=== PATIENT | male | born 1990 | race African-American/Black ===

== ENCOUNTER 2019-08-20 02:48 | Emergency (ER) | payer SELFPAY ==
[2019-08-20 03:57] LABS: ABSOLUTE BASOPHILS # (AUTO) 0.1 10^3/uL (0.0-0.2); ABSOLUTE LYMPHOCYTES (AUTO) 2.3 10^3/uL (0.5-4.7); ABSOLUTE MONOCYTES (AUTO) 1.1 10^3/uL (0.1-1.4); BASOPHILS % (AUTO) 0.6 % (0-2); EOSINOPHILS % (AUTO) 0.3 % (0-6); HEMATOCRIT 47.9 % (37.9-51.0); HEMOGLOBIN 16.1 g/dL (13.5-17.0); LYMPHOCYTES % (AUTO) 18.6 % (13-45); MEAN CORPUSCULAR HEMOGLOBIN 29.7 pg (27.0-33.4); MEAN CORPUSCULAR HGB CONC 33.6 g/dL (32.0-36.0); MEAN CORPUSCULAR VOLUME 89 fl (80-97); MONOCYTES % (AUTO) 8.7 % (3-13); PLATELET COUNT 332 10^3/uL (150-450); RED BLOOD COUNT 5.41 10^6/uL (4.35-5.55); RED CELL DISTRIBUTION WIDTH 15.2 % (11.5-14.0); SEGMENTED NEUTROPHILS % (AUTO) 71.8 % (42-78); TOTAL CELLS COUNTED % (AUTO) 100 %; WHITE BLOOD COUNT 12.5 10^3/uL (4.0-10.5)
[2019-08-20 04:17] LABS: ANION GAP 16 (5-19); BLOOD UREA NITROGEN 15 mg/dL (7-20); CALCIUM 10.3 mg/dL (8.4-10.2); CARBON DIOXIDE 22 mmol/L (22-30); CHLORIDE 106 mmol/L (98-107); GLUCOSE 97 mg/dL (75-110); POTASSIUM 4.9 mmol/L (3.6-5.0)
[2019-08-20] MEDS ORDERED: RINGERS SOLUTION,LACTATED 1,000 ML IV ONE (04:57)
--- NOTE | 2019-08-20 05:02 | ER Document Report ---
ED Substance Abuse / Acc. OD - General TRAVEL OUTSIDE OF THE [place] IN LAST 30 DAYS: No <PARK ZARAGOZA - Last Filed: 08/20/19 08:09> <TIFFANIE MAN - Last Filed: 08/20/19 20:37> - General Chief Complaint: Drug Abuse Stated Complaint: NAUSEA Time Seen by Provider: 08/20/19 04:43 Notes: Patient is a 28-year-old male that comes emergency department for chief complaint of needing medical clearance. Reportedly patient overdosed on heroin last night, was seen at [facility], discharged and referred to [facility] for rehab, patient went to that place, however he vomited at the treatment center and his heart rate was elevated so they sent him over here reportedly "for IV fluids and something for nausea". He is here with his parents who are giving most of the history, patient is confused about the specific details of what happened in the past 24 hours. However patient is alert and responsive otherwise. Patient states he smokes cigarettes, he drank alcohol yesterday including "a couple of shots", he denies marijuana. He states typically he will inject cocaine or heroin but he never does so on a daily basis and he has never had withdrawal symptoms in the past. States he just feels "dried out". He denies any other complaints. (PARK ZARAGOZA) - Related Data Allergies/Adverse Reactions: No Known Allergies Allergy (Verified 08/20/19 07:47) Past Medical History - General Information source: Patient, Parent - Social History Smoking Status: Current Every Day Smoker Drug Abuse: Cocaine, Heroin Lives with: Family Family History: Reviewed & Not Pertinent Patient has suicidal ideation: No Patient has homicidal ideation: No - Immunizations Hx Diphtheria, Pertussis, Tetanus Vaccination: Yes <PARK ZARAGOZA - Last Filed: 08/20/19 08:09> Review of Systems - Review of Systems Constitutional: See HPI EENT: No symptoms reported Cardiovascular: See HPI Respiratory: No symptoms reported Gastrointestinal: See HPI Genitourinary: No symptoms reported Male Genitourinary: No symptoms reported Musculoskeletal: No symptoms reported Skin: No symptoms reported Hematologic/Lymphatic: No symptoms reported Neurological/Psychological: No symptoms reported <PARK ZARAGOZA - Last Filed: 08/20/19 08:09> Physical Exam <PARK ZARAGOZA - Last Filed: 08/20/19 08:09> - Vital signs Vitals: Temp Pulse Resp BP Pulse Ox 97.5 F 109 H 20 130/67 H 96 08/20/19 02:53 08/20/19 02:53 08/20/19 02:53 08/20/19 02:53 08/20/19 02:53 - Notes Notes: GENERAL: Alert, interacts well. No acute distress. HEAD: Normocephalic, atraumatic. EYES: Pupils equal, round, and reactive to light. Extraocular movements intact. ENT: Oral mucosa moist, tongue midline. Oropharynx unremarkable. Airway patent. LUNGS: Clear to auscultation bilaterally, no wheezes, rales, or rhonchi. No respiratory distress. HEART: Borderline tachycardia, normal rhythm, no murmur ABDOMEN: Soft, non-tender. Non-distended. EXTREMITIES: Moves all 4 extremities spontaneously. No edema, normal radial and dorsalis pedis pulses bilaterally. No cyanosis. BACK: no cervical, thoracic, lumbar midline tenderness. No saddle anesthesia, normal distal neurovascular exam. Moves all extremities in full range of motion. NEUROLOGICAL: Alert and oriented x3. Normal speech. Cranial nerves II through XII grossly intact. PSYCH: Slightly flat affect and somewhat distracted and restless but still is easily directable and cooperative. SKIN: Warm, dry, normal turgor. No rashes or lesions noted. (PARK ZARAGOZA) Course - Laboratory Result Diagrams: 08/20/19 03:45 08/20/19 03:45 <PARK ZARAGOZA - Last Filed: 08/20/19 08:09> - Laboratory Result Diagrams: 08/20/19 03:45 08/20/19 03:45 <TIFFANIE MAN - Last Filed: 08/20/19 20:37> - Re-evaluation Re-evalutation: Patient is mildly tachycardic on exam but he is very well-appearing, he was already drinking fluids when I was in the room. He is conversational and cooperative although he is confused about today's events. He is oriented otherwise. Patient does have with him paperwork from his evaluation at [facility], this indicates that patient did have an accidental overdose and was given Narcan, he had a leukocytosis at 23.9 and a mild transaminitis at that time, his creatinine was 1.49. Plan is improved by comparison, leukocytosis is only 12, transaminitis has resolved, creatinine 1.69 (slightly worse, reportedly has not had anything PO yet and vomited earlier). Patient was provided with IV fluids. Patient not complaining of nausea, tolerating p.o. without any difficulty at this time, no current complaints. 08/20/19 Patient reportedly vomited right before he was given Zofran. He currently has no complaints on reevaluation though. He will be given Carafate, famotidine, Phenergan for suspected gastritis component. His abdomen is soft and benign. If he tolerates p.o. patient will be medically cleared and discharged with nausea medications back to the rehabilitation center based on his evaluation and work-up today. 08/20/19 08:09 Patient is tolerating his p.o. meds. We are waiting for him to make sure he does not vomit these, his vital signs will be rechecked, if processes are normal patient will be transferred back to detox. Report given to Mary Man MANAGER LAND (PARK ZARAGOZA) 08/20/19 08:58 The nurse, Mervin Shannon presented to me that patient was very agitated pacing in the room heart rate was 116. She was worried that [facility] would not accept patient. I contacted [facility] at [phone] talk to the dual rate supervisor. She would like the nurse to talk to the nurse before sending him over. She was given the nurses name and telephone number. The patient is very busy walking around the exam room says he cannot find his wallet. Will not sit down. Patient's parents are at his side requesting to leave and take him to [facility] now. pt discharged to with Tommy. (TIFFANIE MAN) - Vital Signs Vital signs: Temp Pulse Resp BP Pulse Ox 98.2 F 116 H 20 136/77 H 100 08/20/19 08:44 08/20/19 08:44 08/20/19 08:44 08/20/19 08:44 08/20/19 08:44 - Laboratory Laboratory results interpreted by me: 08/20/19 08/20/19 08/20/19 03:45 03:45 03:45 WBC 12.5 H RDW 15.2 H Absolute Neuts (auto) 9.0 H Creatinine 1.69 H Est GFR ( Amer) 59 L Est GFR (MDRD) Non-Af 49 L Calcium 10.3 H Alkaline Phosphatase 138 H Total Protein 9.0 H Urine Protein Urine Blood Salicylates < 1.0 L Acetaminophen < 10 L Chlamydia DNA (PCR) 08/20/19 08/20/19 07:35 07:35 WBC RDW Absolute Neuts (auto) Creatinine Est GFR ( Amer) Est GFR (MDRD) Non-Af Calcium Alkaline Phosphatase Total Protein Urine Protein 100 H Urine Blood SMALL H Salicylates Acetaminophen Chlamydia DNA (PCR) DETECTED H Discharge <PARK ZARAGOZA - Last Filed: 08/20/19 08:09> <TIFFANIE MAN - Last Filed: 08/20/19 20:37> - Discharge Clinical Impression: Dehydration, Substance abuse Vomiting Qualifiers: Vomiting type: unspecified Vomiting Intractability: non-intractable Nausea presence: with nausea Qualified Code(s): R11.2 - Nausea with vomiting, unspecified Condition: Stable Disposition: PSYCH HOSP/UNIT Additional Instructions: Your work-up is reassuring and improved from prior. I suspect there is a component of inflammation of the upper gastrointestinal tract as well, recommend the famotidine as prescribed and also Zofran as needed. Start with bland foods, avoid smoking, alcohol, spicy foods, NSAIDs as you recover. If symptoms resolve return to normal diet. Return if you worsen including black stools, severe abdominal pain, uncontrolled vomiting, severe chest pain, fever, or any other concerning symptoms. Prescriptions: Famotidine [Pepcid 20 mg Tablet] 20 mg PO BID #14 tablet Ondansetron [Zofran Odt 4 mg Tablet] 1 - 2 tab PO Q4H PRN #15 tab.rapdis PRN Reason: For Nausea/Vomiting
[2019-08-20 05:16] LABS: ALBUMIN 4.8 g/dL (3.5-5.0); ALKALINE PHOSPHATASE 138 U/L (38-126); ASPARTATE AMINO TRANSFERASE 56 U/L (17-59); BILIRUBIN,DIRECT 0.4 mg/dL (0.0-0.4); BILIRUBIN,TOTAL 1.1 mg/dL (0.2-1.3)
[2019-08-20 05:18] LABS: ACETAMINOPHEN < 10 ug/mL (10-30); ALCOHOL < 10 mg/dL (NONE DETECTED); SALICYLATE < 1.0 mg/dL (2.0-20.0)
[2019-08-20] MEDS ORDERED: ONDANSETRON HCL INJ/PF 4 MG/2 ML SDV IV ONE (06:49)
[2019-08-20] MEDS ORDERED: PROMETHAZINE HCL 25 MG TABLET PO ONE (07:13)
[2019-08-20] MEDS ORDERED: SUCRALFATE 1 GM TABLET PO ONE (07:13)
[2019-08-20] MEDS ORDERED: FAMOTIDINE 20 MG TABLET PO ONE (07:13)
[2019-08-20 07:58] LABS: APPEARANCE,URINE CLOUDY; BILIRUBIN,URINE NEGATIVE (NEGATIVE); GLUCOSE, URINE NEGATIVE (NEGATIVE); KETONES,URINE NEGATIVE (NEGATIVE); LEUKOCYTE ESTERASE,URINE NEGATIVE (NEGATIVE); NITRITE,URINE NEGATIVE (NEGATIVE); PROTEIN,URINE 100 mg/dL (NEGATIVE); URINE SPECIFIC GRAVITY 1.023; UROBILINOGEN,URINE NEGATIVE mg/dL (<2.0)
[2019-08-20 08:01] LABS: COLOR,URINE DARK YELLOW
[2019-08-20 08:07] LABS: URINE BARBITURATES SCREEN NEGATIVE; URINE BENZODIAZEPINES SCREEN NEGATIVE; URINE COCAINE SCREEN NEGATIVE; URINE MARIJUANA (THC) SCREEN NEGATIVE; URINE METHADONE SCREEN NEGATIVE; URINE PHENCYCLIDINE SCREEN NEGATIVE
[2019-08-20 08:53] VITALS: BP 136/77
[2019-08-20 09:51] LABS: CHLAM PCR DETECTED (NOT DETECT)
--- NOTE | 2019-08-20 23:57 | EKG REPORT ---
SEVERITY:- ABNORMAL ECG - SINUS RHYTHM RIGHT ATRIAL ABNORMALITY : Confirmed by: Maira Akers 20-Aug-2019 23:57:12
== END 2019-08-20 09:00 ==
LOC: ER 02:48
DX: E86.0 Dehydration (principal); F14.10 Cocaine abuse, uncomplicated; F11.10 Opioid abuse, uncomplicated; R11.2 Nausea with vomiting, unspecified; F17.210 Nicotine dependence, cigarettes, uncomplicated
CPT/HCPCS: 93005; 99284; 96360; 36415; 80307 ×4; 83690; 85025; 80076; 80048; 81001; 87491; 87591; 93010; J7120